=== PATIENT | female | born 1970 | race Caucasian/White ===

== ENCOUNTER 2017-09-05 08:19 | Emergency (ER) | payer OTHER ==
[2017-09-05] MEDS ORDERED: Albuterol 0.083% 2.5 MG/3 ML Neb Soln ONE (08:27)
[2017-09-05] MEDS ORDERED: Albuterol 0.083% 2.5 MG/3 ML Neb Soln NEB ONE (08:30)
[2017-09-05] MEDS ORDERED: Sodium Chloride 0.9% 10 ML Syringe FLUSH PRN (08:31)
[2017-09-05] MEDS ORDERED: methylPREDNISolone Sodium Succinate 125 MG/2 ML SDV IVPUSH ONE (08:31)
--- NOTE | 2017-09-05 09:53 | CR ---
Chest: Frontal view of the chest was obtained. Comparison: No prior chest x-ray. Increased central lung markings are noted. Heart size and mediastinum are normal. Bony structures are unremarkable. Impression: 1. Increased central lung markings raising the possibility of perihilar infectious bronchitis. Please correlate if patient has symptoms of such. Diagnostic code #3
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
== END 2017-09-05 10:06 | disposition home or self-care (01) ==
LOC: JD.ED 08:19
DX: J45.901 Unspecified asthma with (acute) exacerbation (principal)
CPT/HCPCS: 36415; 71045; 80053; 85025; 93005; 94640; 96374; 99285; J2930; J7050; 99284

== ENCOUNTER 2020-10-17 14:57 | Emergency (ER) | payer OTHER ==
[2020-10-17] MEDS ORDERED: EPINEPHrine 1 MG/ML SDV IM PRN (15:34)
[2020-10-17] MEDS ORDERED: Sodium Chloride 0.9% 10 ML Syringe FLUSH PRN (15:34)
[2020-10-17] MEDS ORDERED: diphenhydrAMINE 50 MG/ML SDV IVPUSH PRN (15:34)
[2020-10-17] MEDS ORDERED: Famotidine 20 MG/2 ML SDV IVPUSH PRN (15:34)
[2020-10-17] MEDS ORDERED: methylPREDNISolone Sodium Succinate 125 MG/2 ML SDV IVPUSH PRN (15:34)
[2020-10-17] MEDS ORDERED: Sodium Chloride 0.9% 10 ML Syringe FLUSH SCH (15:45)
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
== END 2020-10-17 18:00 | disposition home or self-care (01) ==
LOC: JD.ED 14:57
DX: U07.1 COVID-19 (principal); R55 Syncope and collapse; E03.9 Hypothyroidism, unspecified; E66.9 Obesity, unspecified; Z68.30 Body mass index [BMI] 30.0-30.9, adult; Z86.16 Personal history of COVID-19; Z79.899 Other long term (current) drug therapy
CPT/HCPCS: 99284; J7050; M0245; Q0245